=== PATIENT | female | born 1965 | race Caucasian/White ===

== ENCOUNTER 2017-10-01 18:23 | Emergency (ER) | payer OTHER ==
[2017-10-01] MEDS ORDERED: LIDOCAINE 5% (700 MG) TRANSDERMAL ADH..PATCH TP ONE (19:10)
[2017-10-01] MEDS ORDERED: IBUPROFEN 800 MG TABLET PO ONE (19:10)
[2017-10-01 19:11] VITALS: BP 124/47
--- NOTE | 2017-10-01 19:14 | ER Document Report ---
HPI - HPI Patient complains to provider of: Right shoulder injury Onset: Yesterday Onset/Duration: Sudden Quality of pain: Achy Pain Level: 4 Context: Patient states that she had her dog's leash wrapped around her right wrist and her dog took off suddenly pulling her right arm. Patient states that she did strike her shoulder against the wall of the garage. Patient complains of pain with lifting her right arm above her head. Patient is right-hand dominant. Associated Symptoms: Other - Right shoulder pain Exacerbated by: Movement Relieved by: Remaining still Similar symptoms previously: No Recently seen / treated by doctor: No - ROS ROS below otherwise negative: Yes Systems Reviewed and Negative: Yes All other systems reviewed and negative - NEURO Neurology: DENIES: Weakness - MUSCULOSKELETAL Musculoskeletal: REPORTS: Extremity pain - DERM Skin Color: Normal Skin Problems: None Past Medical History - General Information source: Patient - Social History Smoking Status: Current Every Day Smoker Smoking Education Provided: Yes Frequency of alcohol use: None Drug Abuse: None Occupation: [employer] Lives with: Family Family History: Reviewed & Not Pertinent Psychiatric Medical History: Reports: Hx Bipolar Disorder, Hx Depression Past Surgical History: Reports: Hx Cardiac Surgery, Hx Hysterectomy, Hx Tonsillectomy, Hx Tubal Ligation Vertical Provider Document - CONSTITUTIONAL Agree With Documented VS: Yes Exam Limitations: No Limitations General Appearance: WD/WN, No Apparent Distress - INFECTION CONTROL TRAVEL OUTSIDE OF THE [place] IN LAST 30 DAYS: No - HEENT HEENT: Atraumatic, Normocephalic - NECK Neck: Normal Inspection - RESPIRATORY Respiratory: No Respiratory Distress - CARDIOVASCULAR Pulses: Normal: Radial - BACK Back: Normal Inspection - MUSCULOSKELETAL/EXTREMETIES Musculoskeletal/Extremeties: MAEW, Tender - Right shoulder joint tenderness to anterior posterior aspect of humeral head, no dislocation, no deformity. Tenderness increases with the right shoulder abduction., No Edema. negative: Eccymosis - NEURO Level of Consciousness: Awake, Alert, Appropriate Motor/Sensory: No Motor Deficit - DERM Integumentary: Warm, Dry, No Rash Procedures - Immobilization Right Shoulder Pre-Proc Neuro Vasc Exam: Normal Immobilizer type: Sling Performed by: PCT Post-Proc Neuro Vasc Exam: Normal Alignment checked and good: Yes Discharge - Discharge Clinical Impression: Sprain of shoulder, right Qualifiers: Encounter type: initial encounter Shoulder sprain type: unspecified sprain Qualified Code(s): S43.401A - Unspecified sprain of right shoulder joint, initial encounter Condition: Stable Disposition: HOME, SELF-CARE Instructions: Shoulder Injury ([facility]), Temporary Sling ([facility]) Additional Instructions: Return immediately for any new or worsening symptoms Followup with your primary care provider, call tomorrow to make a followup appointment Where sling for the next 4-5 days and then remove. If still having pain follow- up with orthopedics for further evaluation Prescriptions: Cyclobenzaprine HCl [Flexeril 10 Mg Tablet] 10 mg PO TID #15 tablet Naproxen [Naprosyn 250 Nmg Tablet] 1 tab PO BID #14 tablet Forms: Smoking Cessation Education, Restricted Release, Return to Work Referrals: VINEET REZA MD [Primary Care Provider] - Follow up as needed [facility] [Provider Group] - Follow up as needed
== END 2017-10-01 19:52 | disposition home or self-care (01) ==
LOC: ER 18:23
DX: S43.401A Unspecified sprain of right shoulder joint, initial encounter (principal); X50.9XXA Other and unspecified overexertion or strenuous movements or postures, initial encounter; Z90.710 Acquired absence of both cervix and uterus; F17.200 Nicotine dependence, unspecified, uncomplicated
CPT/HCPCS: 99283

== ENCOUNTER 2018-02-10 19:29 | Emergency (ER) | payer OTHER ==
[2018-02-10 21:11] LABS: APPEARANCE,URINE CLEAR; BILIRUBIN,URINE NEGATIVE (NEGATIVE); COLOR,URINE STRAW; GLUCOSE, URINE NEGATIVE (NEGATIVE); KETONES,URINE NEGATIVE (NEGATIVE); LEUKOCYTE ESTERASE,URINE NEGATIVE (NEGATIVE); NITRITE,URINE NEGATIVE (NEGATIVE); PROTEIN,URINE NEGATIVE (NEGATIVE); URINE SPECIFIC GRAVITY 1.005; UROBILINOGEN,URINE NEGATIVE mg/dL (<2.0)
[2018-02-10] MEDS ORDERED: IPRATROPIUM/ALBUTEROL 0.5-2.5 MG/3 ML AMPUL NEB ONE ×2 (22:56→23:33)
[2018-02-10] MEDS ORDERED: ACETAMINOPHEN 325 MG TABLET PO ONE (22:57)
[2018-02-10] MEDS ORDERED: IBUPROFEN 600 MG TABLET PO ONE (22:57)
--- NOTE | 2018-02-10 22:59 | ER Document Report ---
ED General - General Chief Complaint: Breathing Difficulty Stated Complaint: DIFFICULTY BREATHING Time Seen by Provider: 02/10/18 22:49 Notes: Patient is a 52-year-old female who presents to the emergency department with a chief complaint of chest congestion, body aches, and sinus pain. Her symptoms started 3 days ago. She has had a runny nose. She denies any nausea, vomiting, or diarrhea. She has been taking [id number] sinus congestion medication to help with her symptoms, with no relief. She is a smoker. She denies any chest pain. TRAVEL OUTSIDE OF THE [place] IN LAST 30 DAYS: No - Related Data Allergies/Adverse Reactions: No Known Allergies Allergy (Verified 10/01/17 18:26) Past Medical History - General Information source: Patient - Social History Smoking Status: Current Every Day Smoker Smoking Education Provided: Yes - > 3 min Lives with: Family Family History: Reviewed & Not Pertinent Renal/ Medical History: Denies: Hx Peritoneal Dialysis Psychiatric Medical History: Reports: Hx Bipolar Disorder, Hx Depression Past Surgical History: Reports: Hx Cardiac Surgery, Hx Hysterectomy, Hx Tonsillectomy, Hx Tubal Ligation Review of Systems - Review of Systems Notes: REVIEW OF SYSTEMS: CONSTITUTIONAL : See HPI EENT: See HPI CARDIOVASCULAR: Denies chest pain. RESPIRATORY: See HPI GASTROINTESTINAL: Denies nausea, vomiting, and diarrhea. Denies abdominal pain. Denies constipation. GENITOURINARY: Denies difficulty urinating, burning, blood in urine, urgency or frequency. MUSCULOSKELETAL: Denies neck and back pain. Denies joint pain or swelling. SKIN: Denies rash, itchiness, or lesions HEMATOLOGIC : Denies easy bruising or bleeding. LYMPHATIC: Denies swollen, painful, enlarged glands. NEUROLOGICAL: Denies no numbness or tingling denies weakness. Denies headache. Denies altered mental status. Denies alteration in speech. PSYCHIATRIC: Denies stress, anxiety, alteration in sleep patterns, or depression. All other systems reviewed and negative. Physical Exam - Vital signs Vitals: Temp Pulse Resp BP Pulse Ox 98.8 F 105 H 20 135/74 H 92 02/10/18 19:49 02/10/18 19:49 02/10/18 19:49 02/10/18 19:49 02/10/18 19:49 - Notes Notes: PHYSICAL EXAMINATION: GENERAL: Appears unwell, healthy, well-nourished, no acute distress. HEAD: Normocephalic, atraumatic. EYES: PERRL, conjunctiva normal, all extraocular movements intact, sclera nonicteric ENT: Moist mucous membranes. Rhinorrhea noted. NECK: Supple, no noticeable swelling, redness, rash. Normal range of motion. LUNGS: Expiratory wheezes noted bilaterally. CARDIOVASCULAR: S1-S2, regular rate, regular rhythm. Radial pulses 2+, normal. ABDOMEN: Normoactive bowel sounds. Soft, nontender, no guarding, no rebound tenderness, and no masses palpated. EXTREMITIES: Normal strength and range of motion, no pitting or edema. No cyanosis. NEUROLOGICAL: Moves all extremities upon command. Strength 5/5 in all extremities. PSYCH: Normal mood, normal affect. SKIN: Warm, dry. No rash, lesions, ulcerations noted. Normal skin turgor. Course - Re-evaluation Re-evalutation: 02/10/18 22:59 Patient has wheezing in bilateral lung blankenship her initial O2 sat was 92% on room air, but she is a chronic smoker. She will be given DuoNeb treatment. She will be ordered Motrin, Tylenol for her body aches. 02/10/18 2345 Patient's lung sounds are still wheezy, she was receive another DuoNeb treatment and I will reassess her. 02/11/18 01:15 Patient states that she feels better after receiving her DuoNeb treatments. She will be sent home with an albuterol inhaler and Motrin and Tylenol for her symptoms. Return precautions were discussed with the patient. She verbalized understanding. Verbal discharge instructions were given to the patient. They verbalized understanding. They are stable for discharge. Documentation was completed using voice recognition software, therefore there may be some unintended grammatical errors. - Vital Signs Vital signs: Temp Pulse Resp BP Pulse Ox 97.5 F 96 16 113/79 93 02/11/18 01:35 02/11/18 01:35 02/11/18 01:35 02/11/18 01:35 02/11/18 01:35 Discharge - Discharge Clinical Impression: Cough, Chest congestion, Sinus pain Condition: Stable Disposition: HOME, SELF-CARE Additional Instructions: You were seen in the emergency department for congestion, body aches, and sinus pain. Your symptoms appear to be viral in nature. You may take the loratadine you bought from the store. You may take Motrin 600 mg and Tylenol hours as needed for your symptoms. If you develop a fever greater than 100.4 F, have worsening symptoms, or have symptoms that are worrisome to you, please return to the emergency department. Please try to quit smoking, as it is not good for your health. Forms: Return to Work Referrals: VINEET REZA MD [Primary Care Provider] - Follow up as needed
--- NOTE | 2018-02-10 23:01 | EKG REPORT ---
SEVERITY:- NORMAL ECG - SINUS RHYTHM : Confirmed by: Alia Paredes MD 10-Feb-2018 23:00:41
[2018-02-11] MEDS ORDERED: IPRATROPIUM/ALBUTEROL 0.5-2.5 MG/3 ML AMPUL NEB ONE (00:19)
[2018-02-11] MEDS ORDERED: ALBUTEROL SULFATE HFA (90 MCG/PUFF) 8 GM MDI (1 MDI/ER DISP) IH PRN (01:19)
[2018-02-11 01:36] VITALS: BP 113/79
== END 2018-02-11 01:37 | disposition home or self-care (01) ==
LOC: ER 19:29
DX: R05 Cough (principal); R09.89 Other specified symptoms and signs involving the circulatory and respiratory systems; J34.89 Other specified disorders of nose and nasal sinuses; F17.200 Nicotine dependence, unspecified, uncomplicated; R06.2 Wheezing
CPT/HCPCS: 93005; 99406; 94640 ×2; 99284; 81001; 93010; J3490; J7620 ×2

== ENCOUNTER 2019-01-06 02:51 | Emergency (ER) | payer OTHER ==
--- NOTE | 2019-01-06 03:53 | RADIOLOGY REPORT (SQ) ---
EXAM DESCRIPTION: X-ray single view chest. CLINICAL HISTORY: 53 years Female, Congestion COMPARISON: None. TECHNIQUE: Single portable x-ray view of the chest performed on 01/06/2019 at 3:26 AM FINDINGS: The lungs are well expanded and are clear. There is no evidence of a pneumothorax. The cardiac silhouette is normal in size and configuration. The mediastinal contours are normal. No acute osseous abnormality is identified. No focal soft tissue abnormalities are seen. Lines and tubes: None. IMPRESSION: No evidence of acute intrathoracic disease.
[2019-01-06] MEDS ORDERED: PREDNISONE 20 MG TABLET PO ONE (07:04)
[2019-01-06] MEDS ORDERED: IPRATROPIUM/ALBUTEROL 0.5-2.5 MG/3 ML AMPUL NEB ONE (07:04)
[2019-01-06] MEDS ORDERED: ALBUTEROL SULFATE HFA (90 MCG/PUFF) 8 GM MDI (1 MDI/ER DISP) IH ONE (07:10)
--- NOTE | 2019-01-06 07:15 | ER Document Report ---
HPI - HPI Time Seen by Provider: 01/06/19 06:15 Pain Level: 1 Context: 52-year-old female who presents to the emergency department with a chief complaint of cough, chest congestion, and sinus pain. Her symptoms started 3 weeks ago with the sinus pain and pressure approximately 7 days ago. She has had a runny nose. She denies any nausea, vomiting, or diarrhea. She has been taking [id number] sinus congestion medication to help with her symptoms, with no relief. She is a smoker. She denies any chest pain. - CONSTITUTIONAL Constitutional: DENIES: Fever, Chills - RESPIRATORY Respiratory: REPORTS: Coughing Past Medical History - Social History Smoking Status: Current Every Day Smoker Family History: Reviewed & Not Pertinent Patient has suicidal ideation: No Patient has homicidal ideation: No Renal/ Medical History: Denies: Hx Peritoneal Dialysis Psychiatric Medical History: Reports: Hx Bipolar Disorder, Hx Depression Past Surgical History: Reports: Hx Cardiac Surgery, Hx Section, Hx Hysterectomy, Hx Tonsillectomy, Hx Tubal Ligation Vertical Provider Document - CONSTITUTIONAL Notes: PHYSICAL EXAMINATION: Reviewed vital signs and charting by RN GENERAL: Alert, interacts well. No acute distress. HEAD: Normocephalic, atraumatic. EYES: Pupils equal and round. Extraocular movements intact. ENT: Oral mucosa moist, tongue midline. NECK: Full range of motion. Trachea midline. LUNGS: End expiratory wheezes in all blankenship, no rales or rhonchi. No respiratory distress. HEART: Regular rate and rhythm. No murmur ABDOMEN: soft, non-tender. No distention. Bowel sounds present EXTREMITIES: Moves all 4 extremities spontaneously. No edema, No cyanosis. PSYCH: Normal affect, normal mood. SKIN: Warm, dry, normal turgor. No rashes or lesions noted. - INFECTION CONTROL TRAVEL OUTSIDE OF THE [place] IN LAST 30 DAYS: No Course - Re-evaluation Re-evalutation: 01/06/19 07:15 Well-appearing and nontoxic. Patient does have end expiratory wheezing heard in all blankenship, symptoms consistent with acute bronchitis as patient has had cough for the last 3 weeks. No focal crackles heard, afebrile, not tachypneic so I have very low suspicion clinically for pneumonia and she has a normal chest x- ray. Patient has sinus congestion with some pain but symptoms have been only present for 7 days so I am not going to prescribe an antibiotic for an acute sinusitis at this time. I am going to give her DuoNeb's x2 and give her a short course of prednisone. Patient was given strict return precautions, agrees with plan, stable for discharge. 01/06/19 07:15 - Vital Signs Vital signs: Temp Pulse Resp BP Pulse Ox 97.9 F 102 H 14 135/83 H 95 01/06/19 02:56 01/06/19 02:56 01/06/19 02:56 01/06/19 02:56 01/06/19 02:56 Discharge - Discharge Clinical Impression: Bronchitis Condition: Good Disposition: HOME, SELF-CARE Additional Instructions: You were seen for symptoms most consistent with bronchitis. This can take up to 12 weeks to fully resolve. This is generally due to a viral infection. Please follow-up with your primary doctor in the next 2-3 days. Return if you develop worsening cough, vomiting, fever >102, pass out, begin coughing blood, or have any other symptoms that are concerning to you. Please use the medications prescribed today as directed. Prescriptions: Benzonatate [Tessalon Perles 100 mg Capsule] 100 mg PO Q8HP PRN #40 capsule PRN Reason: Prednisone [Deltasone 20 mg Tablet] 3 tab PO DAILY 5 Days tablet Forms: Return to Work Referrals: CORNELIO PACHECO PA [Primary Care Provider] - Follow up as needed
[2019-01-06 08:01] VITALS: BP 122/69
== END 2019-01-06 08:01 | disposition home or self-care (01) ==
LOC: ER 02:51
DX: J40 Bronchitis, not specified as acute or chronic (principal); F17.200 Nicotine dependence, unspecified, uncomplicated; Z90.710 Acquired absence of both cervix and uterus
CPT/HCPCS: 94640; 99283; 71045; J7512; J3490; J7620